=== PATIENT | female | born 1950 | race African-American/Black ===

== ENCOUNTER 2016-11-08 02:31 | Emergency (ER) | payer OTHER ==
[~2016-11-08] VITALS: Ht 162.6 cm; Wt 93.8 kg
[~2016-11-08 02:31] MED LIST: ASPIRIN81 M1 PO; CELEBREX200 MG PO; CHILD ASPIRIN81 M1 PO; DIOVAN160 MG PO; ERGOCALCIF50000 UNIT PO; FIORICET,ESG1 TABLET PO; HYDROCHLOROTHIA25 MG PO; HYDROXYCHLOROQ200 MG PO; INDOCIN50 MG PO; LEVOTHROID,S0.125 MG PO; LEVOTHROID137 MCG PO; LIDEX 0.05% GEL15 GM PO; LOSARTAN POTASS50 MG PO; MIRALAX17 GM PO; MOBIC7.5 MG PO; NAPROSYN500 MG PO; NORCO 5/3251 TABLET PO; RANITIDINE HCL150 M1 PO; SIMVASTATIN40 M1 PO; SYNTHROID125 MCG PO; TRAMADOL HCL50 MG PO; TRAZODONE HCL50 MG PO; VALIUM5 MG PO; VICODIN 5-3001 EACH PO; ZANTAC75 M2 PO; ZOCOR40 MG PO
[2016-11-08 03:05] LABS: HEMATOCRIT 37.3 % (36.0-46.0); MCH 29.3 PG (29.0-34.0); MCHC 33.5 G/DL (30.0-36.0); MCV 87.4 FL (83-99); MEAN PLAT.VOLUME 9.2 uM^3 (9.5-12.4); PLATELET COUNT 285 K/uL (156-360); RBC DIS.WIDTH-CV 14.3 % (11.8-14.6); RED BLOOD COUNT 4.27 M/uL (3.80-5.20); WHITE BLOOD COUNT 12.8 K/uL (4.1-10.2)
[2016-11-08 03:13] LABS: CHLORIDE 102 mEq/L (99-109); POTASSIUM 3.8 mEq/L (3.7-5.4); SODIUM 139 mEq/L (136-147)
[2016-11-08 03:15] LABS: GLUCOSE 130 mg/dL (70-99)
[2016-11-08 03:16] LABS: ANION GAP 12 MEQ/L (2-14)
[2016-11-08 03:19] LABS: GFR ESTIMATE (CALCULATED) > 59 mL/min/; UREA NITROGEN (BUN) 12 mg/dL (9-23)
[2016-11-08 03:25] LABS: TROP-I INTERPRETATION NEGATIVE; TROPONIN-I < 0.01 ng/mL (0.0-0.30)
[2016-11-08 05:36] LABS: TROP-I INTERPRETATION NEGATIVE; TROPONIN-I < 0.01 ng/mL (0.0-0.30)
[2016-11-08 06:34] VITALS: BP 117/72
== END 2016-11-08 06:34 | disposition home or self-care (01) ==
LOC: EME 02:31
PROVIDERS: Emergency Medicine
DX: R07.89 Other chest pain (principal); K21.9 Gastro-esophageal reflux disease without esophagitis; I10 Essential (primary) hypertension; E78.5 Hyperlipidemia, unspecified; F32.9 Major depressive disorder, single episode, unspecified; M19.90 Unspecified osteoarthritis, unspecified site; F17.200 Nicotine dependence, unspecified, uncomplicated
CPT/HCPCS: 80048; 84484; 85027; 93005; 99281; 99284

== ENCOUNTER 2017-09-08 06:08 | Emergency (ER) | payer OTHER ==
[~2017-09-08] VITALS: Ht 162.6 cm; Wt 91.3 kg
[2017-09-08 07:00] LABS: APPEARANCE SL.HAZY ((CLEAR)); BILIRUBIN NEGATIVE; BLOOD NEGATIVE; COLOR YELLOW ((YELLOW)); GLUCOSE (STRIP) NEGATIVE; KETONES NEGATIVE; LEUKOCYTES MODERATE; NITRITE POSITIVE; PROTEIN (STRIP) 100; SPECIFIC GRAVITY 1.015 (1.000-1.030); UROBILINOGEN 0.2 MG/DL (0.2-1.0)
[2017-09-08 07:26] LABS: BASOPHIL (%) 0.2 % (0-1); EOSINOPHIL COUNT 0.1 K/uL (0-0.3); HEMOGLOBIN 13.7 G/DL (11.9-15.5); IMMATURE GRANULOCYTE (%) 0.2 % (0.0-0.7); LYMPHOCYTE COUNT 2.7 K/uL (1.0-2.8); MCH 30.2 PG (29.0-34.0); MCHC 33.4 G/DL (30.0-36.0); MCV 90.5 FL (83-99); MONOCYTE (%) 6.8 % (3-12); MONOCYTE COUNT 0.4 K/uL (0-0.8); NEUTROPHIL (%) 46.8 % (45-76); NEUTROPHIL COUNT 2.8 K/uL (1.8-6.4); PLATELET COUNT 291 K/uL (156-360); RBC DIS.WIDTH-CV 14.2 % (11.8-14.6); RBC DIS.WIDTH-SD 47.2 % (39-53); RED BLOOD COUNT 4.53 M/uL (3.80-5.20)
[2017-09-08 07:36] LABS: RED BLOOD CELLS NONE SEEN /HPF (0-5)
[2017-09-08 07:37] LABS: EPITHELIAL CELLS 1+ /HPF; MUCUS 1+ /LPF; WHITE BLOOD CELLS 20-30 /HPF (0-5)
[2017-09-08 07:38] LABS: BACTERIA 2+ /HPF; HYALINE CASTS 0-5 /LPF
[2017-09-08 07:59] LABS: ALBUMIN 4.2 G/DL (3.2-4.8); ALKALINE PHOSPHATASE 73 IU/L (3-129); ALT (GPT) 13 IU/L (3-49); AST (GOT) 17 IU/L (2-34); CHLORIDE 104 MEQ/L (99-109); CREATININE 0.8 MG/DL (0.6-1.3); GFR ESTIMATE (CALCULATED) > 59 mL/min/; GLUCOSE 122 mg/dL (70-99); LIPASE 11 U/L (1.0-51.0); POTASSIUM 3.8 MEQ/L (3.7-5.4); SODIUM 140 MEQ/L (136-147); TOTAL BILIRUBIN 0.4 MG/DL (0.0-1.0); TOTAL PROTEIN 7.6 G/DL (6.4-8.3); UREA NITROGEN (BUN) 12 mg/dL (9-23)
[2017-09-08] MEDS ORDERED: CIPRO500 MG PO (09:24)
[2017-09-08 09:31] VITALS: BP 145/72
== END 2017-09-08 09:39 | disposition home or self-care (01) ==
LOC: EME 06:08
PROVIDERS: Emergency Medicine
DX: N39.0 Urinary tract infection, site not specified (principal); R11.0 Nausea; E78.5 Hyperlipidemia, unspecified; I10 Essential (primary) hypertension; F32.9 Major depressive disorder, single episode, unspecified; K21.9 Gastro-esophageal reflux disease without esophagitis; M32.9 Systemic lupus erythematosus, unspecified; E55.9 Vitamin D deficiency, unspecified; F17.200 Nicotine dependence, unspecified, uncomplicated
CPT/HCPCS: 74177; 80053; 81003; 83690; 85025; 99281; 99285; J2405; J7030

== ENCOUNTER 2017-10-19 21:49 | Emergency (ER) | payer OTHER ==
[~2017-10-19] VITALS: Ht 162.6 cm; Wt 94.9 kg
[~2017-10-19 21:49] MED LIST changes: +CIPRO500 MG PO
[2017-10-19 22:36] LABS: APPEARANCE CLEAR ((CLEAR)); BILIRUBIN NEGATIVE; BLOOD NEGATIVE; COLOR STRAW ((YELLOW)); GLUCOSE (STRIP) NEGATIVE; KETONES NEGATIVE; LEUKOCYTES NEGATIVE; NITRITE NEGATIVE; PROTEIN (STRIP) 30; SPECIFIC GRAVITY 1.012 (1.000-1.030); UCUL ADDED? NO; UROBILINOGEN 0.2 MG/DL (0.2-1.0)
[2017-10-19] MEDS ORDERED: VIBRAMYCIN100 MG PO (22:36)
[2017-10-19 23:10] VITALS: BP 139/81
== END 2017-10-19 23:12 | disposition home or self-care (01) ==
LOC: EME 21:49
DX: L73.9 Follicular disorder, unspecified (principal); I10 Essential (primary) hypertension; E78.5 Hyperlipidemia, unspecified; Z79.82 Long term (current) use of aspirin; Z90.710 Acquired absence of both cervix and uterus; F17.200 Nicotine dependence, unspecified, uncomplicated
CPT/HCPCS: 81003; 99281; 99284